=== PATIENT | female | born 1935 | race Caucasian/White ===

== ENCOUNTER 2017-01-14 23:12 | Emergency (ER) | payer MEDICARE, OTHER ==
[~2017-01-14] VITALS: Ht 149.9 cm; Wt 62.7 kg
[2017-01-14] MEDS ORDERED: MULT1CHW39 PO (23:29)
[2017-01-14] MEDS ORDERED: GARL10CA2 PO (23:29)
[2017-01-15 00:12] VITALS: BP 121/76
== END 2017-01-15 00:16 | disposition home or self-care (01) ==
LOC: M ED 23:12
DX: R04.0 Epistaxis (principal); J44.9 Chronic obstructive pulmonary disease, unspecified; Z85.038 Personal history of other malignant neoplasm of large intestine; Z88.8 Allergy status to other drugs, medicaments and biological substances

== ENCOUNTER → 2017-03-22 | Outpatient (REF) | payer MEDICARE, OTHER ==
[2017-03-24 11:10] LABS: CARCINOEMBRYONIC ANTIGEN < 0.5 NG/ML (<2.5)
== END ==
LOC: M LAB REF 16:34
DX: C18.9 Malignant neoplasm of colon, unspecified (principal)
CPT/HCPCS: 82378

== ENCOUNTER → 2017-05-04 | Outpatient (REF) | payer MEDICARE, OTHER ==
[2017-05-04 19:32] LABS: FERRITIN 108 NG/ML (8-252); IRON (FE) 20 UG/DL (50-170); PERCENT SATURATION 9.4 % (13.2-45.0); TOTAL IRON BINDING CAPACITY 213 UG/DL (250-450)
[2017-05-05 11:03] LABS: CA 125 1113.3 U/ML (<30.2)
== END ==
LOC: M LAB REF 18:07
DX: R19.09 Other intra-abdominal and pelvic swelling, mass and lump (principal); D64.9 Anemia, unspecified
CPT/HCPCS: 83550